=== PATIENT | female | born 1945 | race Caucasian/White ===

== ENCOUNTER → 2018-07-21 11:04 | Outpatient (CLI) | payer MEDICARE, SELFPAY | LOC: POLAB3 11:05 | PROVIDERS: Family Provider Family Medicine Geriatric Medicine; PCP Family Medicine Geriatric Medicine; Visit Provider Family Medicine Geriatric Medicine | DX: E55.9 Vitamin D deficiency, unspecified (principal); E78.49 Other hyperlipidemia; I10 Essential (primary) hypertension | CPT/HCPCS: 36415 ==

== ENCOUNTER → 2019-01-09 15:07 | Outpatient (CLI) | payer MEDICARE, SELFPAY ==
[2019-01-09 15:51] LABS: Absolute Lymphocyte Count 1.99 X10^3/ul (0.83-4.51); Absolute Neutrophil Count 3.6 X10^3/uL (2.0-7.7); Basophil# 0.02 X10^3/uL; Basophil% 0.3 % (0-1); Eosinophil# 0.12 X10^3/uL; Eosinophils% 1.9 % (0-5); Hemoglobin 14.8 g/dl (12.0-15.0); Lymphocyte # 1.99 X10^3/ul (4.0); Mean Corp Hgb Conc 33.6 g/gl (32-36); Mean Corpuscular Hgb 30.5 pg (27.0-32.0); Mean Corpuscular Volume 90.5 fL (81-99); Mean Platelet Vol. 10.8 fl (6.2-12.0); Monocyte# 0.73 X10^3/uL; Monocyte% 11.4 % (0-10); Neutrophil # 3.55 X10^3/uL (2.7-7.7); Neutrophil % 55.2 % (47-70); Platelet Count 271 K/mm3 (150-450); RBC Distribution Width CV 13.1 % (11.6-14.6); RBC Distribution Width SD 42.9 fl (35.1-43.9); Red Blood Count 4.86 M/mm3 (4.2-5.4); White Blood Count 6.4 K/mm3 (4.4-11.0)
[2019-01-09 15:53] LABS: POSITIVE COUNT NO; POSITIVE DIFFERENTIAL NO; POSITIVE MORPHOLOGY NO
[2019-01-09 16:31] LABS: ALB/GLOB Ratio 1.1 RATIO (0.9-2.4); AST(SGOT) 28 U/L (15-37); Alanine Aminotransfer ALT/SGPT 38 U/L (13-56); Albumin, Serum 4.1 g/dL (3.2-5.0); Alkaline Phosphatase 68 U/L (45-117); Anion Gap 8 (5-15); BNP,B-Type NATRIURETIC PEPTIDE 26.6 pg/mL (0-100); BUN 10 mg/dL (7-18); BUN/Creat Ratio 12.8 RATIO (10-20); Calcium,Total 9.3 mg/dL (8.5-10.1); Chloride 104 mmol/L (98-107); Creatinine, Serum 0.78 mg/dL (0.55-1.02); EST Glomerular Filtration Rate 77 mL/min (>60); Est Glom Filt Rate - Afr Amer 93 mL/min (>60); Globulin 3.6 g/dL (2.2-4.2); Glucose 93 mg/dL (74-106); Potassium 4.1 mmol/L (3.5-5.1); Protein, Total 7.7 g/dL (6.4-8.2); Sodium Level 141 mmol/L (136-145)
--- NOTE | 2019-01-09 17:05 | CT_ITS ---
STUDY: CT BRAIN WITHOUT CONTRAST REASON FOR EXAM: Female, 73 years old. Closed head injury. Syncopal episode in October with head injury. Unsteady was frequent falls since that episode. RADIATION DOSAGE (If Supplied By Facility): CTDIvol = ( 44.99 ) mGy, DLP = ( 779.24 ) mGycm TECHNIQUE: Transaxial CT imaging of the brain was performed without administration of intravenous contrast material. Individualized dose optimization techniques were used for this CT. COMPARISON: No relevant priors. FINDINGS: Normal soft tissue structures. Normal calvarium. There is moderate , predominantly from cerebral atrophy with widening of the extra-axial spaces and ventricular dilatation. There are areas of decreased attenuation within the white matter tracts of the supratentorial brain, consistent with microvascular disease changes. Normal basal ganglia and thalami. Normal brainstem. Normal cerebellum. There is no intracranial hemorrhage. There are no findings of an acute ischemic infarction. Normal visualized paranasal sinuses. CT/Brain/Head without Contrast IMPRESSION: Chronic involutional changes without evidence of acute intracranial or calvarial abnormality. Electronically Signed: Jorden Mata DO at 17:43 EDT Tel [phone], Service support ,
--- NOTE | 2019-01-09 17:11 | RAD_ITS ---
STUDY: X-RAY CHEST REASON FOR EXAM: Female, 73 years old. Shortness breath. TECHNIQUE: PA and lateral views of the chest. COMPARISON: None. FINDINGS: The lungs are clear and expanded. There is no demonstrated pleural abnormality. Normal size heart. Normal mediastinum and alvina. Normal visualized pulmonary arteries. Normal visualized aortic arch and descending thoracic aorta. There are diffuse degenerative changes of the visualized thoracic spine. There is degenerative osteoarthritis of the bilateral shoulders. There is no demonstrated abnormality of the visualized soft tissue structures of the upper abdomen. RAD/Chest PA and Lateral IMPRESSION: No acute cardiopulmonary disease. There are degenerative changes of the thoracic spine and shoulders. Electronically Signed: Jorden Mata DO at 17:34 EDT Tel [phone], Service support ,
== END ==
PROVIDERS: Family Provider Family Medicine Geriatric Medicine; PCP Family Medicine Geriatric Medicine; Referring Provider Family Medicine Geriatric Medicine; Visit Provider Family Medicine Geriatric Medicine
DX: I10 Essential (primary) hypertension (principal); R06.02 Shortness of breath; S09.90XA Unspecified injury of head, initial encounter
CPT/HCPCS: 36415; 70450; 71046; 80053; 83880; 84443; 85025

== ENCOUNTER → 2019-01-19 15:30 | Outpatient (CLI) | payer MEDICARE, SELFPAY ==
--- NOTE | 2019-01-19 16:00 | MRI_ITS ---
STUDY: MRA OF THE HEAD WITHOUT CONTRAST REASON FOR EXAM: Female, 73 years old. 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 Right eye pain. Numbness in feet and legs. TECHNIQUE: 3-D [id number] (TOF) imaging was performed with MIPs. The study was performed unenhanced. COMPARISON: CT brain January 09, 2019 FINDINGS: Normal bilateral petrous carotid arteries. Normal right cavernous carotid artery with a normal supraclinoid bifurcation. Normal left cavernous carotid artery with a normal supraclinoid bifurcation. Normal right A1 segments of the anterior cerebral artery. Normal left A1 segments of the anterior cerebral artery. Normal intact anterior communicating artery (ACOM). Normal bilateral A2 segments of the anterior cerebral arteries. Normal right M1 and M2 segments of the middle cerebral arteries, with a normal M1 bifurcation. Normal left M1 and M2 segments of the middle cerebral arteries, with a normal M1 bifurcation. Normal right posterior communicating artery (PCOM). Normal left posterior communicating artery (PCOM). Normal bilateral vertebral arteries. Normal basilar artery with a normal basilar bifurcation. The visualized bilateral superior cerebellar (SCA) arteries are normal. Normal bilateral P1, P2 and visualized P3 segments of the posterior cerebral arteries. There is no demonstrated aneurysm of the resighini of [place]. There is no major vessel occlusion or hemodynamically significant stenosis. There is no demonstrated abnormality of the visualized brain. MRI/MRA Head ONLY without Contrast IMPRESSION: Normal MRA of the head Electronically Signed: Jameson Senior MD at 20:27 EDT , Service support ,
--- NOTE | 2019-01-19 16:00 | MRI_ITS ---
STUDY: MRI BRAIN WITHOUT CONTRAST REASON FOR EXAM: Female, 73 years old. Cerebellar stroke, abnormal gait, dizziness. Right eye pain and numbness in feet and legs. TECHNIQUE: Standardized multiplanar fat and water weighted pulse sequences were obtained. COMPARISON: MRA brain from today and CT brain January 09, 2019 FINDINGS: Normal size of the ventricles and extra-axial spaces for the patient's age. Normal white matter tracts of the supratentorial brain. There is no evidence for recent intracranial ischemia or other cause of cytotoxic edema on diffusion weighted imaging (DWI). Normal bilateral basal ganglia. Normal thalami. There is no extra-axial fluid accumulation. Normal flow voids within the major intracranial circulation suggesting patency by spin echo criteria. Normal sella turcica, pituitary gland, infundibular stalk, optic chiasm and hypothalamus. Normal tectal plate and pineal gland. Normal midbrain, eloise and medulla. Normal cerebellum. Normal basal cisterns. Normal bilateral temporal bones. Normal bilateral internal auditory canals. No demonstrated orbital abnormality, within the constraints of a routine brain study. Normal visualized paranasal sinuses. Normal calvarium and skull base. Normal visualized soft tissue structures. Normal visualized upper cervical spine. MRI/Brain without Contrast IMPRESSION: Involutional changes of the brain, as described above. Electronically Signed: Jameson Senior MD at 21:01 EDT , Service support ,
--- NOTE | 2019-01-19 16:45 | MRI_ITS ---
STUDY: MRI CERVICAL SPINE WITHOUT CONTRAST REASON FOR EXAM: Female, 73 years old. Numbness in feet and legs TECHNIQUE: Standardized fat and water weighted pulse sequences were obtained in the sagittal and axial planes. COMPARISON: None FINDINGS: Normal foramen magnum and brainstem-cervical cord junction. Normal craniovertebral junction. Normal anterior atlantoaxial articulation. Normal odontoid process. Normal cervical lordosis. Normal vertebral bodies and posterior osseous elements. C2-3: Normal endplates. Normal disc height, signal and morphology. Normal central canal and intervertebral neural foramina. C3-4: Normal endplates. Normal disc height, signal and morphology. Normal central canal and intervertebral neural foramina. C4-5: Moderate broad-based right paracentral disc marginal osteophyte causing moderate narrowing of the neural foramen on the right than left. This encroaches upon the cord. C5-6: Normal endplates. Normal disc height, signal and morphology. Normal central canal and moderate bilateral narrowing intervertebral neural foramina. C6-7: Moderate central posterior disc marginal osteophyte impinging the cord. Moderately severe narrowing of the neural foramen on the right. Left neural foramen patent. Central canal measures 5 mm in the midline. C7-T1: Normal endplates. Normal disc height, signal and morphology. Normal central canal and intervertebral neural foramina. Normal cervical cord. Normal visualized soft tissue structures. MRI/Spine Cervical (Routine) IMPRESSION: Multilevel spinal stenosis as noted above in particular C6-7 Electronically Signed: Jameson Senior MD at 23:58 EDT , Service support ,
--- NOTE | 2019-01-19 17:30 | MRI_ITS ---
STUDY: MRA NECK WITH AND WITHOUT CONTRAST REASON FOR EXAM: Female, 74 years old. Cerebellar CVA with abnormal gait. TECHNIQUE: 3-D [id number] (TOF) imaging was performed in an 1.5 T MRI scanner. 20 ml IV Dotarem was administered for the contrast enhanced images. Several images are limited by patient motion. COMPARISON: Prior comparable comparison studies are not available for review at this time. FINDINGS: RIGHT CAROTID ARTERIES: Normal right common carotid artery (CCA). There is mild atherosclerotic plaque formation with minimal narrowing of the right carotid bulb. Normal origin of the right internal carotid (ICA) artery without a hemodynamically significant stenosis. Normal visualized cervical portion of the right internal carotid artery. Normal origin of the right external carotid artery (ECA). LEFT CAROTID ARTERIES: Normal left common carotid artery (CCA). Normal left common carotid bulb. Normal origin of the left internal carotid (ICA) artery without a hemodynamically significant stenosis. Normal visualized cervical portion of the left internal carotid artery. Normal origin of the left external carotid artery (ECA). VERTEBRAL ARTERIES: Normal antegrade flow within the bilateral vertebral artery without a hemodynamically significant stenosis. MRI/MRA Neck WITH and W/O Contrast IMPRESSION: No MRI evidence for hemodynamically significant stenosis of the common carotid, internal carotid or vertebral arteries. NOTE: Determination of stenosis is based on NASCET criteria. Electronically Signed: Nona Martínez MD at 4:40 EDT , Service support ,
== END ==
LOC: MRI 15:31
PROVIDERS: Family Provider Family Medicine Geriatric Medicine; PCP Family Medicine Geriatric Medicine; Referring Provider Family Medicine Geriatric Medicine; Visit Provider Family Medicine Geriatric Medicine
DX: G46.4 Cerebellar stroke syndrome (principal); R26.9 Unspecified abnormalities of gait and mobility
CPT/HCPCS: 70544; 70549; 70551; 72141; A9575

== ENCOUNTER → 2019-01-24 13:02 | Outpatient (CLI) | payer MEDICARE, SELFPAY ==
[2019-01-24 11:43] VITALS: BMI 41.9
== END ==
LOC: PSN 13:04
PROVIDERS: Family Provider Family Medicine Geriatric Medicine; PCP Family Medicine Geriatric Medicine; Referring Provider Internal Medicine Cardiovascular Disease; Visit Provider Internal Medicine Cardiovascular Disease
DX: R55 Syncope and collapse (principal)
CPT/HCPCS: 93225; 93226

== ENCOUNTER → 2019-02-09 | Outpatient (CLI) | payer MEDICARE, SELFPAY ==
[2019-01-24 11:43] VITALS: BMI 41.9
[2019-02-09 10:31] LABS: Absolute Neutrophil Count 3.3 X10^3/uL (2.0-7.7); Basophil# 0.02 X10^3/uL; Basophil% 0.3 % (0-1); Eosinophil# 0.22 X10^3/uL; Eosinophils% 3.3 % (0-5); Hematocrit 44.6 % (37-47); Hemoglobin 15.1 g/dl (12.0-15.0); Lymphocyte % 34.3 % (19-41); Mean Corp Hgb Conc 33.9 g/gl (32-36); Mean Corpuscular Hgb 30.4 pg (27.0-32.0); Mean Corpuscular Volume 89.7 fL (81-99); Mean Platelet Vol. 10.7 fl (6.2-12.0); Monocyte# 0.89 X10^3/uL; Monocyte% 13.3 % (0-10); Neutrophil # 3.26 X10^3/uL (2.7-7.7); Neutrophil % 48.7 % (47-70); Platelet Count 239 K/mm3 (150-450); RBC Distribution Width CV 13.2 % (11.6-14.6); RBC Distribution Width SD 43.4 fl (35.1-43.9); Red Blood Count 4.97 M/mm3 (4.2-5.4); White Blood Count 6.7 K/mm3 (4.4-11.0)
[2019-02-09 10:36] LABS: POSITIVE COUNT NO; POSITIVE DIFFERENTIAL NO; POSITIVE MORPHOLOGY NO
[2019-02-09 10:41] LABS: ALB/GLOB Ratio 1.2 RATIO (0.9-2.4); AST(SGOT) 23 U/L (15-37); Alanine Aminotransfer ALT/SGPT 31 U/L (13-56); Albumin, Serum 4.1 g/dL (3.2-5.0); Alkaline Phosphatase 67 U/L (45-117); Anion Gap 6 (5-15); BUN 9 mg/dL (7-18); BUN/Creat Ratio 11.6 RATIO (10-20); Calcium,Total 9.3 mg/dL (8.5-10.1); Chloride 107 mmol/L (98-107); Creatinine, Serum 0.78 mg/dL (0.55-1.02); EST Glomerular Filtration Rate 77 mL/min (>60); Est Glom Filt Rate - Afr Amer 93 mL/min (>60); Globulin 3.4 g/dL (2.2-4.2); Glucose 96 mg/dL (74-106); Potassium 3.8 mmol/L (3.5-5.1); Protein, Total 7.5 g/dL (6.4-8.2); Sodium Level 144 mmol/L (136-145)
--- NOTE | 2019-02-09 12:35 | ECHOCS_ITS ---
Reason For Study: Arrhythmia Procedure This was a 2D Doppler, Color Flow transthoracic echocardiogram. Contrast injection was performed. Exam performed in department. Left Ventricle Normal LV size. Left ventricular systolic function is normal. The estimated ejection fraction is 53 %. Stage 1 diastolic dysfunction. No regional wall motion abnormalities noted. Right Ventricle Normal RV size. Normal systolic function. Atria The left atrium is mildly enlarged. Normal right atrium. Mitral Valve Normal mitral valve. Tricuspid Valve Normal tricuspid valve. Mild tricuspid valve insufficiency. Pulmonary artery systolic pressure is 30 mmHg. Aortic Valve Trisinus/trileaflet aortic valve. Mild focal aortic valve calcification. Pulmonic Valve The pulmonic valve is not well visualized. Great Vessels Normal aortic root. The pulmonary artery is normal size. Normal inferior vena cava. Pericardium/Pleural No pericardial effusion. Medication Diluted definity 3.5ml given slow IV push to enhance endocardial definition. MMode/2D Measurements & Calculations LVIDd: 4.3 cm IVSd: 1.1 cm LA dimension: 4.0 cm LVIDs: 2.9 cm LVPWd: 1.0 cm RVDd: 3.8 cm FS: 31.3 % LAV(MOD-bp): 54.4 ml LA A4 area: 21.0 cm2 RA A4 area: 17.6 cm2 LAV(MOD-bp) Indexed: 27.2 ml/m2 LAV(MOD-sp2): 46.5 ml LAV(MOD-sp4): 61.5 ml Time Measurements MV dec time: 0.25 sec Doppler Measurements & Calculations MV E max hollis: 84.1 cm/sec Lat Peak E' Hollis: 5.8 cm/sec Med Peak E' Hollis: 7.2 cm/sec MV A max hollis: 93.3 cm/sec E/E' lat: 14.5 E/E' med: 11.7 MV E/A: 0.90 MV V2 max: 104.9 cm/sec MV P1/2t max hollis: 80.9 cm/sec Ao V2 max: 213.2 cm/sec MV max P.4 mmHg MV P1/2t: 137.6 msec Ao max P.2 mmHg MV V2 mean: 52.2 cm/sec MV dec slope: 172.3 cm/sec2 Ao V2 mean: 139.6 cm/sec MV mean P.3 mmHg Ao mean P.9 mmHg MV V2 VTI: 37.3 cm MVA(P1/2t): 1.6 cm2 Ao V2 VTI: 49.4 cm LV V1 max: 113.1 cm/sec PA V2 max: 65.7 cm/sec TR max hollis: 259.2 cm/sec LV V1 max P.1 mmHg TR max P.9 mmHg LV V1 mean P.7 mmHg LV V1 mean: 76.4 cm/sec LV V1 VTI: 28.1 cm Interpretation Summary Normal LV size. Left ventricular systolic function is normal. The estimated ejection fraction is 53 %. Stage 1 diastolic dysfunction. The left atrium is mildly enlarged. Pulmonary artery systolic pressure is 30 mmHg. Contrast injection was performed. Ordering Physician: Meli, Holcomb Referring Physician: Thompson Easley Chi Performed By: Randall Oneill RCS
--- NOTE | 2019-02-09 13:40 | CT_ITS ---
STUDY: CT ABDOMEN AND PELVIS WITHOUT CONTRAST REASON FOR EXAM: Female, 74 years old. Generalized abdominal pain RADIATION DOSAGE (If Supplied By Facility): CTDIvol = ( 21.52 ) mGy, DLP = ( 1102.08 ) mGycm TECHNIQUE: Transaxial images were obtained from the dome of the diaphragm to the symphysis pubis with oral contrast, and without intravenous contrast. Sagittal and coronal images were reconstructed. Individualized dose optimization techniques were used for this CT. COMPARISON: None. FINDINGS: Body wall soft tissues: No acute process. Osseous structures: No acute process. Inferior chest: Lung bases clear, normal distal esophagus, borderline cardiomegaly, coronary calcifications. Hepatobiliary: Hepatic steatosis, mild hepatomegaly, craniocaudal right liver 18.6 cm. Gallbladder absent. Nondilated biliary tree. Pancreas: Mild atrophy. Spleen: Normal. Adrenal glands: Normal. Urogenital: Normal kidneys, collecting systems, ureters, urinary bladder, uterus and adnexa. No adnexal mass or cyst. No cul-de-sac free fluid. Pelvic floor and sidewalls and retroperitoneum: No mass or adenopathy. Vasculature: No acute process. Stomach: No acute process. Small bowel and mesentery: Orally administered contrast has traversed the entirety of the small bowel without obstruction or delay. The small bowel and mesentery appear normal. Large bowel: Normal appendix. Sigmoid diverticulosis, circumferential thickening of the wall of the distal most descending colon and proximal sigmoid colon over a length of approximately 12 cm without acute inflammation of the surrounding fat. Low-grade simmering colitis may be present. There is no evidence of acute focal diverticulitis. Mid to distal sigmoid colon and rectum unremarkable. Free fluid or free air: None. CT/Abdomen/Pelvis without Cont IMPRESSION: No definitive acute abdominopelvic process is evident. Hepatic steatosis with mild hepatomegaly. Thickening of the wall of the distal descending and proximal sigmoid colon without acute inflammatory features in the surrounding fat. Mild/low grade colitis may present similarly. There is no evidence of acute focal diverticular inflammation. The Electronically Signed: Florian Davis MD at 14:18 EDT Tel , Service support ,
== END | disposition home or self-care (01) ==
PROVIDERS: Family Provider Family Medicine Geriatric Medicine; PCP Family Medicine Geriatric Medicine; Referring Provider Family Medicine Geriatric Medicine; Visit Provider Family Medicine Geriatric Medicine
DX: R10.9 Unspecified abdominal pain (principal); R19.7 Diarrhea, unspecified; I95.9 Hypotension, unspecified
CPT/HCPCS: 36415; 74176; 80053; 82274; 83630; 85025; 87177; 87209; 87493; 87506; 93306; C8929

== ENCOUNTER → 2019-02-28 | Outpatient (CLI) | payer MEDICARE, SELFPAY ==
[2019-02-16 09:33] VITALS: BMI 41.7
--- NOTE | 2019-02-28 14:39 | RAD_ITS ---
STUDY: X-RAY - LUMBAR SPINE REASON FOR EXAM: Female, 74 years old. Low back pain TECHNIQUE: 3 view(s) of the lumbar spine were obtained. COMPARISON: None FINDINGS: Normal lumbar lordosis. There is no substantial scoliosis. There is a normal alignment of the vertebrae. There is multilevel endplate spondylosis of the lumbar vertebrae. There is multi-level degenerative disc disease with multi-level disc space narrowing. There is no demonstrated fracture. There is atherosclerotic calcification of the abdominal aorta without a demonstrated aneurysm. RAD/Lumbar Spine 2 or 3 Views IMPRESSION: Degenerative changes of the spine, as detailed above. Electronically Signed: Quintin Munoz MD at 15:22 EDT , Service support ,
--- NOTE | 2019-02-28 14:45 | RAD_ITS ---
STUDY: X-RAY - CERVICAL SPINE REASON FOR EXAM: Female, 74 years old. Pain TECHNIQUE: 3 view(s) of the cervical spine were obtained. COMPARISON: None FINDINGS: Normal anterior atlantoaxial articulation. Normal odontoid process. Normal cervical lordosis. There is multi-level endplate spondylosis. There is multi-level degenerative disc disease with multilevel disc space narrowing. The soft tissue structures are unremarkable. There is no demonstrated fracture of the cervical spine. RAD/Cerv Spine 2 or 3 Views IMPRESSION: Multilevel degenerative changes, no acute findings Electronically Signed: Quintin Munoz MD at 15:21 EDT , Service support ,
== END | disposition home or self-care (01) ==
LOC: RAD 14:38
PROVIDERS: Family Provider Family Medicine Geriatric Medicine; PCP Family Medicine Geriatric Medicine; Referring Provider Anesthesiology Pain Medicine; Visit Provider Anesthesiology Pain Medicine
DX: M54.2 Cervicalgia (principal); M54.9 Dorsalgia, unspecified
CPT/HCPCS: 72040; 72100